=== PATIENT | male | born 1950 | race Two or more races ===

== ENCOUNTER 2017-07-26 07:23 | Day surgery (SDC) | payer MEDICARE, BC ==
[~2017-07-26] VITALS: Ht 177.8 cm; Wt 83.9 kg
[2017-07-26] VITALS (8 sets, daily range): BP systolic 122–138; BP diastolic 77–89
--- NOTE | 2017-07-26 06:09 | Anethesia Preoperative Eval ---
Anesthesia Pre-op PMH/ROS General Date of Evaluation: Jul 26, 2017 Time of Evaluation: 06:08 Anesthesiologist: michele ASA Score: ASA 2 Mallampati Score Class I : Soft palate, uvula, fauces, pillars visible Class II: Soft palate, uvula, fauces visible Class III: Soft palate, base of uvula visible Class IV: Only hard plate visible Mallampati Classification: Class II Surgeon: chelsi Diagnosis: abdominal pain Surgical Procedure: egd/colonoscopy Anesthesia History: none Social History: smoking - former smoker Family History: no anesthesia problems Allergies: Uncoded Allergies: PLASTIC TAPE (Allergy, Intermediate, 04/10/13) SWELLING ON SITE PENELOPE IF ON FOR A LONG PERIOD OF TIME Medications: see eMAR Past Medical History Gastrointestinal/Genitourinary: Reports: GERD, other - abdominal pain Hematology/Immune: Reports: other - hx/o chicken pox, mumps, measles Musculoskeletal/Integumentary: Reports: other - back pain Anesthesia Pre-op Phys. Exam Physician Exam Last Vital Signs Date Time Temp Pulse Resp B/P (MAP) Pulse Ox O2 Delivery O2 Flow Rate FiO2 07/26/17 07:52 97.5 77 18 138/89 97 Room Air Constitutional: NAD Neurologic: CN 2-12 intact Cardiovascular: RRR Respiratory: CTA Gastrointestinal: S/NT/ND Airway Exam Mallampati Score: Class II MO: full Neck: supple TMD: 2fb ROM: full Teeth: intact Anesthesia Pre-op A/P Risk Assessment & Plan Assessment: asa2 Plan: mac Status Change Before Surgery: No Pre-Antibiotics Drug: DONATO [place] Jul 26, 2017 06:09
[~2017-07-26 07:23] MED LIST: LR 1000ml 1,000 ML IVLG SCH; NEXIUM40 MG ORAL; PREVACID30 MG ORAL
[2017-07-26] MEDS ORDERED: Lidocaine 1% MPF 10mg/ml 5ml ONE (07:24)
[2017-07-26] MEDS ORDERED: LR 1000ml ONE (07:24)
[2017-07-26] MEDS ORDERED: Propofol 200mg/20ml IV ONE (07:24)
--- NOTE | 2017-07-26 07:44 | Short Stay Surgery H&P ---
History of Present Illness History of Present Illness Chief Complaint Abdominal pains, GERDS, screening colon HPI Norberto Beverly is a 66 year old male who was admitted on for Abdominal Pain and screening colonoscopy Patient History Allergies: Uncoded Allergies: PLASTIC TAPE (Allergy, Intermediate, 04/10/13) SWELLING ON SITE PENELOPE IF ON FOR A LONG PERIOD OF TIME PAST MEDICAL HISTORY: Past Surgeries: Social History: Medication History Scheduled Esomeprazole Magnesium (Nexium), 40 MG ORAL DAILY, (Reported) Review of Systems Cardiovascular: Reports: no symptoms Respiratory: Reports: no symptoms Skeletal: Reports: no symptoms Gastrointestinal: Reports: other Genitourinary: Reports: no symptoms Neurologic: Reports: no symptoms Endocrine: Reports: no symptoms Physical Exam Skin: normal HENT: normal Heart: normal Lungs: normal Abdomen: abnormal Extremities: normal Genitourinary: normal Plan Plan of Care Upper and lower GI endoscopy Preop Interventions None. Summary of Findings See the reports. Final Diagnosis: Attestation Are the patient's medical conditions optimized for surgery? Attestation Response: yes MEY SMITH Jul 26, 2017 07:44
--- NOTE | 2017-07-26 07:45 | Pre-Procedure Note/Attestation ---
Pre-Procedure Note/Attestation Complete Prior to Procedure Planned Procedure: left Procedure Narrative: The examination of the upper and the lower GI tract via endoscopy to evaluate for ulcers and colon polyps Indications for Procedure Pre-Operative Diagnosis: R/O Gastritis/esophagitis/colon polyps. Attestation I attest that I discussed the nature of the procedure; its benefits; risks and complications; and alternatives (and the risks and benefits of such alternatives ), prior to the procedure, with the patient (or the patient's legal insurance verification representative). I attest that, if there was a reasonable possibility of needing a blood transfusion, the patient (or the patient's legal insurance verification representative) was given the [place] [employer] standardized written summary, pursuant to the Dariusz Cee Blood Safety Act ([place] Health and Safety Code # 1645, as amended). I attest that I re-evaluated the patient just prior to the surgery and that there has been no change in the patient's H&P, except as documented below: LUIS,SAID Jul 26, 2017 07:45
--- NOTE | 2017-07-26 08:24 | Endoscopy Procedure Note ---
Endoscopy Procedure Note Indication for Procedure: Abdominal pains/GERDS and screening colon Procedures Performed: EGD - Completely normal upper GI endoscopy as gastric biopsy done per random., colonoscopy - Completely normal total colon without evidence of any polyps or patholoogy found. Operative Findings/Diagnosis: Normal upper and lower GI endoscopies Specimen: yes Pt Tolerated Procedure Well: Yes Estimated Blood Loss: none Anesthesiologist: Dr. James Anesthesia: moderate sedation Medication Given: see anesthesia record Implant(s) used?: No 50 yrs or older w/o bx or poly: Yes 10yrs. F/U not recommended: No If not recommended, why?: Above average risk 10 yrs. F/U needed: Yes 18 years or older w/prev. colo: Yes <3yrs. since last colonoscopy: No Med reason:<3 yrs.: System Reason:<3 yrs.: Last colonoscopy >= to 3yrs: Yes MEY SMITH Jul 26, 2017 08:23
[2017-07-26] MEDS ORDERED: LR 1000ml 1,000 ML IVLG SCH (08:25)
--- NOTE | 2017-07-26 08:25 | Discharge Instructions ---
Discharge Instructions Discharge Instructions Follow up with: See the docotor after two weeks in office For Congestive Heart Failure Reminder Report to your physician any weight gain of 5 pounds or more in one week. MEY SMITH Jul 26, 2017 08:25
[2017-07-26] MEDS ORDERED: DiphenhydrAMINE 50mg/ml Inj IVP PRN (08:30)
[2017-07-26] MEDS ORDERED: Atropine Inj 1mg/10ml Syr IV PRN (08:30)
[2017-07-26] MEDS ORDERED: fentaNYL 100 mcg/2 mL IV PRN (08:30)
[2017-07-26] MEDS ORDERED: Midazolam 2mg/2ml Inj IVP PRN (08:30)
--- NOTE | 2017-07-26 15:45 | Immediate Post-Op Evaluation ---
Immediate Post-Op Evalulation Immediate Post-Op Evalulation Procedure: egd/colonoscopy Date of Evaluation: Jul 26, 2017 Time of Evaluation: 08:43 IV Fluids: lr 300ml Blood Products: none Estimated Blood Loss: negligible Blood Pressure Systolic: 122 Blood Pressure Diastolic: 79 Pulse Rate: 72 Respiratory Rate: 18 O2 Sat by Pulse Oximetry: 97 Temperature (Fahrenheit): 97.0 Pain Score (1-10): 0 Nausea: No Vomiting: No Complications none Patient Status: awake, reacts, patent Hydration Status: adequate DONATO DAILY Jul 26, 2017 15:45
--- NOTE | 2017-07-26 15:47 | 48 Hour Post Anesthesia Eval ---
Post Anesthesia Evaluation Procedure: egd/colonoscopy Date of Evaluation: Jul 26, 2017 Time of Evaluation: 08:45 Blood Pressure Systolic: 122 0: 77 Pulse Rate: 77 Respiratory Rate: 18 Temperature (Fahrenheit): 97.0 O2 Sat by Pulse Oximetry: 99 Airway: patent Nausea: No Vomiting: No Pain Intensity: 0 Hydration Status: adequate Cardiopulmonary Status: stable Mental Status/LOC: patient returned to baseline Post-Anesthesia Complications: none Follow-up care needed: N/A DONATO DAILY Jul 26, 2017 15:47
--- NOTE | 2017-07-26 16:15 | Operative Note - Dictated ---
DATE OF OPERATION: 07/26/2017 SURGEON: Costa Cruz M.D. PROCEDURE: Esophagogastroduodenoscopy with biopsy. PREOPERATIVE DIAGNOSES: 1. Abdominal pain. 2. History of chronic gastroesophageal reflux, rule out peptic ulcer disease. POSTOPERATIVE DIAGNOSIS: Completely normal upper gastrointestinal endoscopy. Biopsy was taken per random from gastric body. MEDICATION USED: Per Dr. James, anesthesiologist. INSTRUMENT: GIF Olympus upper GI video endoscope. DESCRIPTION OF PROCEDURE: The patient, after arriving endoscopy unit, was told about risks and benefits of the procedure, which he accepted and signed informed consent. At this time, he was put on the left lateral decubitus position. After adequate IV sedation, the scope was gently passed through the cricopharyngeal area, was lodged in the upper esophagus, and gradually advanced towards the gastroesophageal junction. The entire length of the esophagus looked normal without any evidence of any pathology such as ulcers, tumors, polyps, varices, etc. GE junction also looked normal and there was no any inflammatory process or hiatal hernia. No [place]. The scope was then guided into the stomach. Gastric cavity was distended, and gradually areas of the fundus and the body and the antrum were examined, which revealed normal gastric mucosa without any evidence of ulcers, tumors, polyps, or inflammatory process, etc. At this point, one random biopsy from gastric body obtained. Subsequently, the scope was passed through normal looking antrum and pylorus. The first and second portions of duodenum were also found to be completely normal. At this point, the scope was pulled out and the procedure was terminated. The patient tolerated the procedure well. Costa Cruz M.D. DR: CARLOS JOB#: [id number] CC:
--- NOTE | 2017-07-26 16:15 | Procedure Note ---
DATE OF PROCEDURE: 07/26/2017 SURGEON: Costa Cruz M.D. PROCEDURE: Total colonoscopy. PREOPERATIVE DIAGNOSES: 1. History of colon polyp. 2. Abdominal pain. POSTOPERATIVE DIAGNOSIS: Completely normal total colonoscopy up to the base of the cecum as examined. MEDICATION USED: Per Dr. James, anesthesiologist. INSTRUMENT: GIF Olympus video colonoscope. DESCRIPTION OF PROCEDURE: The patient, after arriving endoscopy unit, was told about risks and benefits of the procedure, which he accepted and signed informed consent. He was then put on the left lateral decubitus position. At this time, the scope was gradually passed into the anal area and a retroflexion maneuver was applied here, which revealed evidence of completely normal rectum without any evidence of major pathology. Subsequently, the scope was passed through the rectosigmoid, entered into the left descending colon, gradually and slowly advanced toward the splenic flexure, transverse colon, right hepatic flexure, and finally was guided into the right colon all the way to the base of the cecum. All these areas were examined quite carefully and there was no any evidence of polyps, tumors, ulcers, inflammatory process, stricture, etc. The colon cleanup was adequate and at this point, after reaching to the base of the cecum within 8 minutes, the scope was gradually pulled out and re-evaluation did not reveal any pathology. The patient tolerated the procedure well and left the endoscopy room in a good condition. Costa Cruz M.D. DR: CARLOS JOB#: [id number] CC:
== END 2017-07-26 09:16 | disposition home or self-care (01) ==
LOC: GAS 07:23
DX: Z12.11 Encounter for screening for malignant neoplasm of colon (principal); R10.9 Unspecified abdominal pain; K21.9 Gastro-esophageal reflux disease without esophagitis; Z87.891 Personal history of nicotine dependence; K29.50 Unspecified chronic gastritis without bleeding
CPT/HCPCS: 43239; 45378; J2704; J7120; 94003; 94150